=== PATIENT | male | born 1945 | race Caucasian/White ===

== ENCOUNTER → 2021-07-26 15:36 | Outpatient (BNVA) | payer MEDICARE, OTHER, SELFPAY | PROVIDERS: Referring Provider Internal Medicine; Visit Provider Internal Medicine | DX: Z20.822 Contact with and (suspected) exposure to COVID-19 (principal) | CPT/HCPCS: 87635 ==

== ENCOUNTER 2021-08-02 08:16 | Day surgery (SDC) | payer MEDICARE, OTHER, SELFPAY ==
[2021-07-29 12:30] VITALS: BMI 27.4
--- NOTE | 2021-08-02 08:35 | ANES.PREANE2 ---
Pre-Anesthetic Assessment Pre-Anesthetic Assessment: Height/Weight: Height 1.65 m Weight 74.843 kg Proposed Procedure: Operation Date: 08/02/21 09:30 Proposed Procedures p Colonoscopy 54850 Z12.11(Not Applicable) - Jason Keys MD Was Beta Vincenzo taken within 24 hours: Yes Was Clonidine taken within 24 hours: N/A Social: Social History: No alcohol and No tobacco Exam: Pre-Anes Outpt Exam: alert, oriented x 3, clear to auscultation bilaterally and regular rate & rhythm Airway: Submandibular: WNL Cervical ROM: WNL MP: 2 Dentition: Chipped Pulmonary: Pulmonary: Sleep apnea CV/HEM: CV/HEM: CAD (CABG, stents) and HTN GI: GI: GERD Metabolic: Metabolic: DM and Hyperlipidemia Musc/skel: Musc/skel: Lower Back Pain Anesthetic Plan: ASA status: 3 Anesthesia: MAC Risk of > 500 ml blood loss (7ml/kg in children): No Data Anesthesia Cardiac Studies: No Data to Display
[2021-08-02 09:00] VITALS: BP 182/111; PULSE 78; RESP 16; TEMP 36.8; O2SAT 96
--- NOTE | 2021-08-02 09:02 | P.HP_ITS ---
Same Day Surgery H&P Indication for Procedure/HPI DATE OF PROCEDURE: August 02, 2021 CHIEF COMPLAINT/INDICATIONFOR SURGICAL PROCEDURE: screen PREOP DIAGNOSIS: screen PLANNED PROCEDRUE: Operation Date: 08/02/21 09:30 Proposed Procedures p Colonoscopy 85983 Z12.11(Not Applicable) - Jason Keys MD Medications/Allergies* Home Medications Medication Instructions Recorded Confirmed Type amlodipine 5 mg tablet 5 mg PO DAILY 07/16/21 07/29/21 History ascorbic acid (vitamin C) 500 mg 500 mg PO DAILY 07/16/21 07/29/21 History capsule aspirin 81 mg chewable tablet 81 mg PO DAILY 07/16/21 07/29/21 History atorvastatin 40 mg tablet 40 mg PO DAILY 07/16/21 07/29/21 History cholecalciferol (vitamin D3) 50 50 mcg PO DAILY 07/16/21 07/29/21 History mcg (2,000 unit) capsule clopidogrel 75 mg tablet 75 mg PO DAILY 07/16/21 07/29/21 History empagliflozin 25 mg tablet 25 mg PO DAILY 07/16/21 07/29/21 History isosorbide mononitrate 30 mg 15 mg PO DAILY tab 07/16/21 07/29/21 History tablet,extended release 24 hr lisinopril 20 1 tab PO DAILY 07/16/21 07/29/21 History mg-hydrochlorothiazide 25 mg tablet mecobalamin (vitamin B12) 1,000 1,000 mcg PO DAILY 07/16/21 07/29/21 History mcg chewable tablet metoprolol tartrate 50 mg tablet 50 mg PO BID 07/16/21 07/29/21 History nitroglycerin 0.4 mg sublingual 0.4 mg SUBLINGUAL Q5M PRN 07/16/21 07/29/21 History tablet pantoprazole 40 mg tablet,delayed 40 mg PO DAILY 07/16/21 07/29/21 History release pioglitazone 45 mg tablet 45 mg PO DAILY 07/16/21 07/29/21 History tamsulosin 0.4 mg capsule 0.4 mg PO DAILY 07/16/21 07/29/21 History tramadol 50 mg tablet 50 mg PO BID PRN 07/16/21 07/29/21 History Allergies/Adverse Reactions Allergy/AdvReac Type Severity Reaction Status Date / Time codeine Allergy itching Verified 08/02/21 08:59 Pertinent Exam Findings alert, oriented x 3, clear to auscultation bilaterally, regular rate & rhythm, operative site marked and procedure specific exam findings Recommendations Surgery/Procedure today Coding Level of Care Code Acute 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
[2021-08-02] MEDS: sodium chloride 0.9% 1,000 ML 30 ML IV (09:10)
[2021-08-02 09:50] VITALS: BP 144/81; PULSE 65; RESP 17; TEMP 36.1; O2SAT 94
[2021-08-02 09:58] LABS: Glucose Point of Care 96 mg/dL (70-110)
[2021-08-02 10:03] VITALS: BP 157/97; PULSE 74; RESP 18; O2SAT 93
--- NOTE | 2021-08-02 10:27 | PM.PACU ---
PACU note Post-Anesthesia Exam: awake and vital signs stable Disposition: discharged
--- NOTE | 2021-08-02 10:40 | ANE.PACU2 ---
Inpatient post-anesthesia follow up: Airway intact: Yes Vital signs: Temperature 97.0 F Pulse Rate 74 Respiratory Rate 18 Blood Pressure 157/97 Pulse Oximetry 93 Oxygen Delivery Me thod Room Air Oxygen Flow Rate Fraction of Inspir ed Oxygen Hydration adequate: Yes Nausea and vomiting: No Pain level: 1 Mental status: Baseline
== END 2021-08-02 10:17 | disposition home or self-care (01) ==
PROVIDERS: PCP Internal Medicine; Visit Provider Internal Medicine
PROC: 0DJD8ZZ Inspection of Lower Intestinal Tract, Via Natural or Artificial Opening Endoscopic (ICD-10-PCS; CPT 45378; principal; 2021-08-02 09:30)
DX: Z12.11 Encounter for screening for malignant neoplasm of colon (principal); K57.30 Diverticulosis of large intestine without perforation or abscess without bleeding; Z79.82 Long term (current) use of aspirin; G47.30 Sleep apnea, unspecified; I25.10 Atherosclerotic heart disease of native coronary artery without angina pectoris; Z95.1 Presence of aortocoronary bypass graft; Z95.5 Presence of coronary angioplasty implant and graft; I10 Essential (primary) hypertension; K21.9 Gastro-esophageal reflux disease without esophagitis; E11.9 Type 2 diabetes mellitus without complications; E78.5 Hyperlipidemia, unspecified
CPT/HCPCS: 36416; 82962; 96360; G0121; J2704; J7030

== ENCOUNTER → 2025-06-29 08:28 | Outpatient (BNVA) | payer MEDICARE, OTHER, SELFPAY | PROVIDERS: PCP Internal Medicine; Visit Provider Dermatology | DX: L57.8 Other skin changes due to chronic exposure to nonionizing radiation (principal); L72.0 Epidermal cyst; L82.1 Other seborrheic keratosis; S00.83XA Contusion of other part of head, initial encounter; X58.XXXA Exposure to other specified factors, initial encounter; D48.5 Neoplasm of uncertain behavior of skin; L57.0 Actinic keratosis | CPT/HCPCS: 11102; 17000; 99203 ==

== ENCOUNTER → 2025-08-02 13:17 | Outpatient (BNVA) | payer MEDICARE, OTHER, SELFPAY | PROVIDERS: PCP Internal Medicine; Visit Provider Dermatology | DX: D04.5 Carcinoma in situ of skin of trunk (principal); L57.0 Actinic keratosis | CPT/HCPCS: 17000; 17262 ==